=== PATIENT | female | born 1940 | race Caucasian/White ===

== ENCOUNTER → 2019-09-30 | Outpatient (CLI) | payer MEDICARE ==
[~2019-09-30] MED LIST: ASPI81TA85 PO; HYDR12.55 PO; LOSA25TA14 PO; NAPR500T6 PO; PERC5TAB12 PO; PREV1CAP PO; ROSU10TA6 PO; ZOFR4TAB16 PO
--- NOTE | 2019-09-30 11:37 | REP ---
Clinical: Preoperative assessment . Comparison: None . Technique: PA and lateral. Findings: The mediastinum and cardiac silhouette are normal. The lung zazueta are clear and without acute consolidation, effusion, or pneumothorax. The skeletal structures are intact and normal. Left shoulder replacement noted. Impression: 1. No acute cardiopulmonary process. Electronically Signed by Bry Jarrell MD 09/30/2019 11:28 A
[2019-09-30 11:53] LABS: HEMATOCRIT 39.3 % (36.0-47.0); HEMOGLOBIN 12.9 g/dl (12.0-15.5); MEAN CORPUSCULAR HGB CONC 32.8 g/dl (32.0-36.5); MEAN CORPUSCULAR VOLUME 91.4 fl (80.0-96.0); PLATELET COUNT, AUTOMATED 292 10^3/uL (150-450); WHITE BLOOD COUNT 8.3 10^3/uL (4.0-10.0)
[2019-09-30 12:05] LABS: INR 1.06; PROTHROMBIN TIME 13.5 SECONDS (11.8-14.0)
[2019-09-30 12:17] LABS: ERYTHROCYTE SEDIMENTATION RATE 46 mm/hr (0-30)
[2019-09-30 12:26] LABS: ALBUMIN 3.6 GM/DL (3.2-5.2); ALT/SGPT 20 U/L (12-78); BILIRUBIN,TOTAL 0.3 MG/DL (0.2-1.0); BLOOD UREA NITROGEN 23 MG/DL (7-18); CALCIUM LEVEL 9.4 MG/DL (8.8-10.2); CARBON DIOXIDE LEVEL 29 MEQ/L (21-32); CHLORIDE LEVEL 103 MEQ/L (98-107); GLOMERULAR FILTRATION RATE > 60.0 (>39); GLUCOSE, FASTING 70 MG/DL (70-100); POTASSIUM SERUM 4.3 MEQ/L (3.5-5.1); SODIUM LEVEL 139 MEQ/L (136-145); TOTAL PROTEIN 7.1 GM/DL (6.4-8.2)
== END ==
LOC: M LAB 10:57
PROVIDERS: ATTEND Orthopaedic Surgery
DX: Z01.818 Encounter for other preprocedural examination (principal); M17.11 Unilateral primary osteoarthritis, right knee

== ENCOUNTER → 2019-10-03 | Outpatient (CLI) | payer MEDICARE ==
[~2019-10-03] MED LIST changes: -ASPI81TA85 PO; +ASPI81TA86 PO
== END ==
LOC: M LABSMTC 10:41
PROVIDERS: ATTEND Anesthesiology
DX: Z01.818 Encounter for other preprocedural examination (principal); Z11.59 Encounter for screening for other viral diseases

== ENCOUNTER 2019-10-06 10:52 | Inpatient (IN) | payer MEDICARE ==
--- NOTE | 2019-09-30 15:43 | HPE ---
DATE OF ADMISSION: 10/06/2019 ATTENDING PHYSICIAN: Dr. César Leonard CHIEF COMPLAINT: Right knee pain and stiffness. HISTORY: The patient is a pleasant 79-year-old female with progressively worsening right knee pain and stiffness. She failed to improve with conservative measures. She continues to have symptoms with weightbearing activities and activities of daily living. She consented for an elective right total knee arthroplasty with Dr. Leonard for her continued symptoms. Medical optimization completed with Dr. Duran. CURRENT MEDICATIONS: - docusate 100 mg daily - hydrochlorothiazide 25 mg daily - pantoprazole 30 mg daily - losartan 25 mg daily - naproxen 500 mg twice daily - [id number] mg daily ALLERGIES: ATORVASTATIN PAST MEDICAL HISTORY: Hypertension. Gastroesophageal reflux disease. Hypercholesterolemia. Osteoarthritis. PAST SURGICAL HISTORY: History of shoulder surgery. SOCIAL HISTORY: The patient is a former smoker and quit greater than 20 years ago. She rarely uses alcohol. REVIEW OF SYSTEMS: The patient denies fevers, chills, nausea, vomiting or diarrhea. She denies chest pain, shortness of breath, lightheadedness, dizziness or headaches. She denies any abdominal pain. She denies any recent upper respiratory or urinary tract infection symptoms. The patient continues to have right knee pain with weightbearing activities and activities of daily living. PHYSICAL EXAMINATION: GENERAL: Well-nourished, well-developed female in no apparent distress. She is alert, oriented and cooperative. Mood and affect are appropriate. VITAL SIGNS: Height 62 inches, weight 214 pounds, temperature 97.1, blood pressure 138/75, heart rate 84, respirations 24. NECK: Supple without lymphadenopathy. HEART: Regular rate and rhythm. LUNGS: Clear to auscultation bilaterally. ABDOMEN: Soft and nontender to palpation. Bowel sounds are present. MUSCULOSKELETAL: Right knee exhibits no gross abnormalities. Skin is intact. There is tenderness along the medial joint line. The patient can extend knee fully and flex to approximately 95 degrees. Right lower extremity strength is 5/5. No hip irritability was elicited with range of motion testing. No evidence of deep venous thrombosis (DVT). She is neurovascularly intact distally. LABORATORY DATA: Chest x-ray: No acute cardiopulmonary process. Right knee x-rays notable for end-stage degenerative changes. Complete blood count: WBC is 8.3, RBCs 4.30, hemoglobin 12.9, hematocrit 39.3, erythrocyte sedimentation rate elevated at 46, platelets 292. Prothrombin time 13.5, INR 1.06. Comprehensive metabolic profile: Fasting glucose 70, BUN elevated at 23, creatinine 0.90, GFR greater than 60, sodium 139, potassium 4.3, chloride 103, carbon dioxide 29, anion gap 7, calcium 9.4, AST 14, ALT 20, alkaline phosphatase 90, total bilirubin 0.3, total protein 7.1, albumin 3.6, albumin-globulin ratio decreased at one. IMPRESSION: Right knee degenerative arthritis with x-rays notable for end-stage degenerative changes. PLAN: The patient consented for an elective right total knee arthroplasty with Dr. Leonard for her continued symptoms. Medical optimization completed with Dr. Duran. The patient will be nothing by mouth after midnight the night prior to surgery with the exception of taking any medications her primary manager long term care instructed her to take the morning of surgery with a small sip of water. She will call [facility] the day prior to surgery to get a report time. The patient will use her Bactroban and Hibiclens as directed. The patient will follow her primary manager long term care's recommendations on how to take her daily medications.
[~2019-10-06] VITALS: Ht 157.5 cm; Wt 95.6 kg
[~2019-10-06 10:52] MED LIST changes: +ACETAMINOPHEN 500 MG TAB PO ONE; -ASPI81TA86 PO; +LIDOCAINE 1% MDV 20ML VIAL SQ PRN; +LR 1,000 ML IV ONE; -PERC5TAB12 PO; -ZOFR4TAB16 PO; +ceFAZolin SOD 2 GM in IV 1 EA IV ONE
[2019-10-06] MEDS ORDERED: ceFAZolin 1GM VIAL (J0690 PER 500MG) As Ordered ONE (15:16)
[2019-10-06] MEDS ORDERED: TRANEXAMIC ACID 100 MG/ML 10ML VIAL As Ordered ONE (15:16)
[2019-10-06] MEDS ORDERED: BUPIVACAINE HCL 0.25% 10ML VIAL As Ordered ONE (15:16)
[2019-10-06] MEDS ORDERED: BUPIVACAINE LIPOSOME/PF 1.3% 20ML VIAL (13.3MG/ML)(EXPAREL)(C9290 PER1MG) As Ordered ONE (15:17)
[2019-10-06] MEDS ORDERED: EPINEPHrine INJ 1 MG/ML 1ML AMP As Ordered ONE (15:18)
[2019-10-06] MEDS ORDERED: fentaNYL 100 MCG/2 ML INJECTION (J3010) As Ordered ONE (16:35)
[2019-10-06] MEDS ORDERED: MIDAZOLAM INJ 2MG/2ML VIAL (J2250 PER 1MG) As Ordered ONE ×2 (16:35→17:50)
[2019-10-06] MEDS ORDERED: LIDOCAINE 2% 100MG/5ML SDV (FOR ANES.) As Ordered ONE (16:41)
[2019-10-06] MEDS ORDERED: propofoL 200 MG/20 ML VIAL As Ordered ONE (16:41)
[2019-10-06] MEDS ORDERED: fentaNYL 100 MCG/2 ML INJECTION (J3010) IV SCH (17:15)
[2019-10-06] MEDS ORDERED: MIDAZOLAM INJ 2MG/2ML VIAL (J2250 PER 1MG) IV SCH (17:15)
[2019-10-06] MEDS ORDERED: propofoL 500 MG/50 ML VIAL As Ordered ONE (19:01)
[2019-10-06] MEDS ORDERED: fentaNYL 100 MCG/2 ML INJECTION (J3010) IV PRN (20:30)
[2019-10-06] MEDS ORDERED: oxyCODONE 5MG TAB PO PRN (20:30)
[2019-10-06] MEDS ORDERED: MORPHINE 2 MG/ML 1ML VIAL (J2270) IV PRN (20:30)
[2019-10-06] MEDS ORDERED: ACETAMINOPHEN TAB 650MG DOSE (2X325MG) PO PRN (20:30)
[2019-10-06] MEDS ORDERED: LR 1,000 ML IV SCH ×2 (20:30)
[2019-10-06] MEDS ORDERED: PERCOCET 5MG/325MG TAB PO PRN (20:30)
[2019-10-06 20:45] VITALS: BP 157/72
[2019-10-06] MEDS ORDERED: ROPIvacaine 0.5% 30ML INJECTION (J2795 PER 1MG) ONE (21:00)
[2019-10-06] MEDS ORDERED: dexameTHASONE 10MG/1ML VIAL PRES.FREE (J1100 PER 1MG) ONE (21:00)
--- NOTE | 2019-10-06 21:06 | REP ---
Two views right knee: 10/06/2019. Indication: Postoperative assessment. Comparison: None. Findings: The patient is status post right knee total arthroplasty with the surgical hardware intact and well seated. Expected postoperative soft tissue abnormalities are present. Impression: Expected postoperative right knee sequelae. Electronically Signed by Andrzej Whalen DO 10/06/2019 08:57 P
[2019-10-06 21:15] VITALS: BP 167/76
[2019-10-06 22:15] VITALS: BP 158/76
[2019-10-06 23:15] VITALS: BP 143/73
[2019-10-07 00:15] VITALS: BP 143/72
[2019-10-07 01:15] VITALS: BP 143/74
[2019-10-07] MEDS: PERCOCET 5MG/325MG TAB PO PRN ×4 (03:01→21:45)
[2019-10-07] MEDS: VANCOMYCIN HCL 1,000 MG, VIAL MATE ADAPTER 1 EACH in D5W 250 ML IV SCH ×2 (05:39→17:26)
[2019-10-07 06:00] VITALS: BP 151/70
[2019-10-07 06:59] LABS: HEMATOCRIT 35.5 % (36.0-47.0); HEMOGLOBIN 11.8 g/dl (12.0-15.5); MEAN CORPUSCULAR HEMOGLOBIN 29.7 pg (27.0-33.0); MEAN CORPUSCULAR HGB CONC 33.2 g/dl (32.0-36.5); MEAN CORPUSCULAR VOLUME 89.4 fl (80.0-96.0); PLATELET COUNT, AUTOMATED 251 10^3/uL (150-450); RED BLOOD COUNT 3.97 10^6/uL (4.00-5.40); WHITE BLOOD COUNT 13.3 10^3/uL (4.0-10.0)
[2019-10-07] MEDS ORDERED: PERC5TAB12 PO (07:03)
[2019-10-07] MEDS ORDERED: ASPI81TA85 PO (07:03)
[2019-10-07 07:32] LABS: ALT/SGPT 16 U/L (12-78); BILIRUBIN,TOTAL 0.3 MG/DL (0.2-1.0); BLOOD UREA NITROGEN 27 MG/DL (7-18); CALCIUM LEVEL 8.8 MG/DL (8.8-10.2); CARBON DIOXIDE LEVEL 27 MEQ/L (21-32); CHLORIDE LEVEL 102 MEQ/L (98-107); CREATININE FOR GFR 0.89 MG/DL (0.55-1.30); GLOMERULAR FILTRATION RATE > 60.0 (>39); GLUCOSE, FASTING 154 MG/DL (70-100); POTASSIUM SERUM 4.1 MEQ/L (3.5-5.1); SODIUM LEVEL 137 MEQ/L (136-145); TOTAL PROTEIN 6.3 GM/DL (6.4-8.2)
[2019-10-07] MEDS: MOM 30ML SUSPENSION UDC PO SCH (09:22)
[2019-10-07] MEDS: ASPIRIN 81 MG CHEW TABLET PO SCH ×2 (09:23→21:45)
[2019-10-07] MEDS: MIRALAX *UNIT DOSE* 17GM PACKET PO SCH (09:23)
[2019-10-07 10:00] VITALS: BP 170/80
[2019-10-07] MEDS: ROSUVASTATIN 10 MG TAB (CRESTOR) PO SCH (12:32)
[2019-10-07] MEDS: hydroCHLOROthiazide 25 MG TAB PO SCH (12:32)
[2019-10-07] MEDS: ONDANSETRON 4MG/2ML VIAL IV PRN (12:32)
[2019-10-07] MEDS: LOSARTAN 25 MG TAB PO SCH (12:32)
[2019-10-07 14:00] VITALS: BP 135/53
[2019-10-07] MEDS: LANSOPRAZOLE SUSPENSION 30 MG/10 ML ORAL SYRINGE (FIRST-LANSOPRAZOLE) PO SCH (17:31)
[2019-10-07 22:00] VITALS: BP 134/54
[2019-10-07] MEDS ORDERED: PERCOCET 5MG/325MG TAB PO PRN (22:45)
[2019-10-07] MEDS ORDERED: MORPHINE 4 MG/ML 1ML VIAL/SYRINGE (J2270) IV ONE (22:45)
[2019-10-08] MEDS: PERCOCET 5MG/325MG TAB PO PRN ×4 (02:24→20:22)
[2019-10-08 06:00] VITALS: BP 141/64
[2019-10-08 06:34] LABS: HEMATOCRIT 34.1 % (36.0-47.0); HEMOGLOBIN 11.1 g/dl (12.0-15.5); MEAN CORPUSCULAR HEMOGLOBIN 29.8 pg (27.0-33.0); MEAN CORPUSCULAR HGB CONC 32.6 g/dl (32.0-36.5); MEAN CORPUSCULAR VOLUME 91.4 fl (80.0-96.0); PLATELET COUNT, AUTOMATED 218 10^3/uL (150-450); RED BLOOD COUNT 3.73 10^6/uL (4.00-5.40); WHITE BLOOD COUNT 10.6 10^3/uL (4.0-10.0)
[2019-10-08 07:07] LABS: ALBUMIN 2.8 GM/DL (3.2-5.2); ALT/SGPT 14 U/L (12-78); BILIRUBIN,TOTAL 0.4 MG/DL (0.2-1.0); BLOOD UREA NITROGEN 24 MG/DL (7-18); CALCIUM LEVEL 8.6 MG/DL (8.8-10.2); CARBON DIOXIDE LEVEL 29 MEQ/L (21-32); CHLORIDE LEVEL 101 MEQ/L (98-107); CREATININE FOR GFR 0.81 MG/DL (0.55-1.30); GLOMERULAR FILTRATION RATE > 60.0 (>39); GLUCOSE, FASTING 108 MG/DL (70-100); POTASSIUM SERUM 3.7 MEQ/L (3.5-5.1); SODIUM LEVEL 136 MEQ/L (136-145); TOTAL PROTEIN 6.2 GM/DL (6.4-8.2)
[2019-10-08] MEDS: MOM 30ML SUSPENSION UDC PO SCH (09:00)
[2019-10-08] MEDS: MIRALAX *UNIT DOSE* 17GM PACKET PO SCH (09:00)
[2019-10-08] MEDS: LANSOPRAZOLE SUSPENSION 30 MG/10 ML ORAL SYRINGE (FIRST-LANSOPRAZOLE) PO SCH (09:24)
[2019-10-08] MEDS: ROSUVASTATIN 10 MG TAB (CRESTOR) PO SCH (09:24)
[2019-10-08] MEDS: LOSARTAN 25 MG TAB PO SCH (09:24)
[2019-10-08] MEDS: hydroCHLOROthiazide 25 MG TAB PO SCH (09:25)
[2019-10-08] MEDS: ASPIRIN 81 MG CHEW TABLET PO SCH ×2 (09:25→20:21)
[2019-10-08 10:00] VITALS: BP 137/60
[2019-10-08] MEDS ORDERED: ZOFR4TAB16 PO (13:05)
[2019-10-08 14:00] VITALS: BP 133/59
[2019-10-08 18:00] VITALS: BP 135/59
[2019-10-08] MEDS: ONDANSETRON 4MG/2ML VIAL IV PRN (20:21)
[2019-10-08 22:00] VITALS: BP 135/59
[2019-10-09] MEDS: ONDANSETRON 4MG/2ML VIAL IV PRN (03:35)
[2019-10-09 05:00] VITALS: BP 139/61
[2019-10-09 07:25] LABS: HEMATOCRIT 34.3 % (36.0-47.0); HEMOGLOBIN 11.1 g/dl (12.0-15.5); MEAN CORPUSCULAR HEMOGLOBIN 29.4 pg (27.0-33.0); MEAN CORPUSCULAR HGB CONC 32.4 g/dl (32.0-36.5); PLATELET COUNT, AUTOMATED 239 10^3/uL (150-450); RED BLOOD COUNT 3.77 10^6/uL (4.00-5.40)
[2019-10-09 07:53] LABS: ALBUMIN 2.7 GM/DL (3.2-5.2); ALT/SGPT 11 U/L (12-78); BILIRUBIN,TOTAL 0.2 MG/DL (0.2-1.0); BLOOD UREA NITROGEN 18 MG/DL (7-18); CALCIUM LEVEL 8.5 MG/DL (8.8-10.2); CARBON DIOXIDE LEVEL 30 MEQ/L (21-32); CHLORIDE LEVEL 98 MEQ/L (98-107); CREATININE FOR GFR 0.68 MG/DL (0.55-1.30); GLOMERULAR FILTRATION RATE > 60.0 (>39); GLUCOSE, FASTING 98 MG/DL (70-100); POTASSIUM SERUM 3.4 MEQ/L (3.5-5.1); SODIUM LEVEL 135 MEQ/L (136-145); TOTAL PROTEIN 6.2 GM/DL (6.4-8.2)
[2019-10-09] MEDS: MOM 30ML SUSPENSION UDC PO SCH (09:10)
[2019-10-09 09:11] VITALS: BP 139/61
[2019-10-09] MEDS: LOSARTAN 25 MG TAB PO SCH (09:11)
[2019-10-09] MEDS: LANSOPRAZOLE SUSPENSION 30 MG/10 ML ORAL SYRINGE (FIRST-LANSOPRAZOLE) PO SCH (09:11)
[2019-10-09] MEDS: hydroCHLOROthiazide 25 MG TAB PO SCH (09:11)
[2019-10-09] MEDS: ROSUVASTATIN 10 MG TAB (CRESTOR) PO SCH (09:11)
[2019-10-09] MEDS: MIRALAX *UNIT DOSE* 17GM PACKET PO SCH (09:11)
[2019-10-09] MEDS: ASPIRIN 81 MG CHEW TABLET PO SCH (09:11)
[2019-10-09] MEDS: PERCOCET 5MG/325MG TAB PO PRN (09:13)
[2019-10-09] MEDS ORDERED: ASPI81TA85 PO (09:36)
[2019-10-09] MEDS ORDERED: ZOFR4TAB16 PO (09:36)
[2019-10-09] MEDS ORDERED: PERC5TAB12 PO (09:36)
--- NOTE | 2019-10-11 18:53 | DSES ---
DATE OF ADMISSION: 10/06/2019 DATE OF DISCHARGE: 10/09/2019 HISTORY OF PRESENT ILLNESS: This is a pleasant 79-year-old female with continuing symptomatic right knee osteoarthritis. She consented for a right total knee arthroplasty per Dr. César Leonard. Medical optimization per Dr. Duran. X-rays are consistent with advanced osteoarthritis. OPERATION PERFORMED: Right total knee arthroplasty. HOSPITAL COURSE: The patient uneventfully underwent knee arthroplasty under spinal anesthesia with MAC. The patient was felt to be ready for discharge on 10/09/2019 with the following instructions. Weightbearing as tolerated walker, diet is regular, Percocet as needed for pain, ZAINA stockings times 30 days with deep vein thrombosis (DVT) anticoagulation per protocol. Optifoam dressing change in 3-4 days time. Followup at orthopedic group in 12-14 days for wound check and potential staple removal. The patient is encouraged to contact our office with increased pain, drainage, bleeding, numbness, tingling down the extremity, fever greater than 101 or any further concerns.
--- NOTE | 2019-10-14 13:32 | RO ---
DATE OF PROCEDURE: 10/06/2019 PREOPERATIVE DIAGNOSIS: Right knee degenerative arthritis. POSTOPERATIVE DIAGNOSIS: Right knee degenerative arthritis. PROCEDURE: Right total knee arthroplasty using a size 5 Attune cruciate-retaining femoral component with a size 5 tibial tray and a 6-mm rotating-platform polyethylene insert and a 35-mm polyethylene button. All components were made by [employer]. It was an Attune knee. SURGEON: Ade Leonard MD SEARCH ANALYST: Ann Pozo PA-C ANESTHESIA: Right femoral nerve block and a spinal. COMPLICATIONS: None. ESTIMATED BLOOD LOSS: 20 mL. SPECIMEN: Joint surface. DESCRIPTION OF PROCEDURE: Antibiotics were given intravenously preoperatively and then a successful right femoral nerve block and then a spinal anesthetic was induced. The tourniquet was placed on the right upper thigh and not inflated. The right lower extremity was carefully prepped and draped in the usual sterile fashion. The leg elevated. Then, after appropriate time-out, the tourniquet was inflated, and then a longitudinal incision was made for a medial parapatellar approach to the knee. Bovie cautery was used to coagulate the crossing vessels. She had a relatively large leg with a deep adipose layer requiring some difficulty in exposure. A medial parapatellar arthrotomy was performed, and then we subperiosteally dissected around the proximal medial and lateral tibial plateaus. We were unable to luis enrique the patella. However, we were able to flex the knee, placed the drill down the center of the femoral canal, followed by the intramedullary dari and the distal femoral cutting jig set at 5-degree valgus cut and 9-mm resection level for a right knee. The cutting block was applied. Distal femoral cut was then performed. AP sizing jig measured for a size 5. 3 degrees of external rotation were dialed in for a right knee, 4-in-1 block applied, and then the anterior and posterior chamfer cuts performed. The sulcus osteotomy jig was then placed and the sulcus osteotomy performed. We then exposed the proximal tibia. We then exposed the proximal tibia, used the extramedullary alignment jig to estimate being parallel to the mechanical axis of the tibia. We referenced off the medial tibial condyle at 4-mm resection level. The block was pinned into position with the appropriate slope, and then a a secondary check with the extramedullary dari confirmed we appeared to be parallel. Thus, we performed the proximal tibial osteotomy. We then placed the lamina torch operator medially and performed a completion of lateral meniscectomy and debridement of the posterior and medial osteophytes, and then placed the lamina torch operator laterally and performed a completion of medial meniscectomy with debridement of the posterior and medial osteophytes. There was a very large posterior and medial osteophyte dissected away. The spacer block 6 mm fit nicely with good symmetry to varus and valgus stress testing, both in flexion and in extension. Thus, I felt this was the appropriate size insert. We then exposed the proximal tibia carefully once again because we could not luis enrique the patella, and then we sized for a #5 tibial tray, which was pinned into position, followed by the reamer and the broach, and then the trial polyethylene, and then the trial femoral component. We brought the knee into extension, everted the patella, and performed a patellar osteotomy, sized for a 35 button. The lug holes drilled. The trial was applied. Patellofemoral tracking was actually anatomic. We then drilled the lug holes for the femur, then removed all the trial components, and we placed Exparel in the subperiosteal tissues around the distal femur and the proximal tibia, and then as I copiously pulsatile lavage irrigated all the bony surfaces in preparation for cementing while my drug safety assistant, Ms. Nuzhat Pozo mixed the cement on the back table. She was also critical to the success of this difficult surgery given the size of her leg and a large amount of adipose tissue and the fact that we were unable to luis enrique the patella during the case by applying appropriate soft tissue retraction, manipulate the knee as needed several times throughout the surgery, mix the cement, prepare the patient for surgery, help close the wound, amongst many other tasks to allow me to perform the operation smoothly, efficiently, and safely. Once all the bony surfaces were thoroughly dried, we then cemented the tibial tray, removed excess cement, placed the polyethylene. Then, we cemented the femoral component, removed excess cement, brought the knee into extension, cemented the patellar button, removed excess cement, and held it with a clamp with the knee in full extension until the cement had hardened. As we were awaiting this, we copiously irrigated out the knee joint once again. Then, we applied tranexamic acid into the knee joint and then began meticulous closure of the arthrotomy with two #1 polydioxanone suture (PDS) sutures in the apex and one medial parapatellar and then also a double-arm #1 running Stratafix used to close the capsule. Then, we released the tourniquet. We irrigated between layers again and closed the deep subdermal tissues with interrupted #2-0 PDS sutures. Then, the skin was closed with roselyn, covered by an Optifoam with dry sterile bulky dressing. She was then transferred to the recovery room in stable condition. There were no intraoperative complications.
== END 2019-10-09 12:40 | disposition home or self-care (01) | DRG 470 ==
LOC: M OR 13:25 → M MS5PR 20:40
PROVIDERS: ADMIT Orthopaedic Surgery; ATTEND Orthopaedic Surgery
PROC: 0SRC0J9 Replacement of Right Knee Joint with Synthetic Substitute, Cemented, Open Approach (ICD-10-PCS; principal; 2019-10-06 16:45)
DX: M17.11 Unilateral primary osteoarthritis, right knee (principal); I10 Essential (primary) hypertension; K21.9 Gastro-esophageal reflux disease without esophagitis; E78.00 Pure hypercholesterolemia, unspecified; Z11.59 Encounter for screening for other viral diseases; Z87.891 Personal history of nicotine dependence; Z88.8 Allergy status to other drugs, medicaments and biological substances; Z79.1 Long term (current) use of non-steroidal anti-inflammatories (NSAID); Z79.899 Other long term (current) drug therapy

== ENCOUNTER → 2020-03-29 | Outpatient (CLI) | payer MEDICARE ==
[~2020-03-29] MED LIST changes: -ACETAMINOPHEN 500 MG TAB PO ONE; +ASPI81TA86 PO; -LIDOCAINE 1% MDV 20ML VIAL SQ PRN; -LR 1,000 ML IV ONE; +PERC5TAB12 PO; +ZOFR4TAB16 PO; -ceFAZolin SOD 2 GM in IV 1 EA IV ONE
--- NOTE | 2020-03-29 09:32 | REP ---
INDICATION: OSTEOARTHRITIS LEFT KNEE- LABS/EKG 1ST COMPARISON: 09/30/2019 TECHNIQUE: PA and lateral. FINDINGS: The mediastinum and cardiac silhouette are normal. The lung zazueta are clear and without acute consolidation, effusion, or pneumothorax. The skeletal structures are intact and normal. IMPRESSION: No acute cardiopulmonary process. <Electronically signed by Bry Jarrell > 03/29/20 09
[2020-03-29 09:51] LABS: HEMATOCRIT 38.7 % (36.0-47.0); HEMOGLOBIN 12.1 g/dl (12.0-15.5); MEAN CORPUSCULAR HEMOGLOBIN 28.8 pg (27.0-33.0); MEAN CORPUSCULAR HGB CONC 31.3 g/dl (32.0-36.5); MEAN CORPUSCULAR VOLUME 92.1 fl (80.0-96.0); PLATELET COUNT, AUTOMATED 247 10^3/uL (150-450); WHITE BLOOD COUNT 7.4 10^3/uL (4.0-10.0)
[2020-03-29 10:01] LABS: INR 0.91; PROTHROMBIN TIME 12.4 SECONDS (12.5-14.3)
[2020-03-29 10:12] LABS: ERYTHROCYTE SEDIMENTATION RATE 43 mm/hr (0-30)
[2020-03-29 10:16] LABS: ALBUMIN 3.4 GM/DL (3.2-5.2); ALT/SGPT 23 U/L (12-78); BILIRUBIN,TOTAL 0.3 MG/DL (0.2-1.0); BLOOD UREA NITROGEN 28 MG/DL (7-18); CARBON DIOXIDE LEVEL 29 MEQ/L (21-32); CHLORIDE LEVEL 103 MEQ/L (98-107); GLOMERULAR FILTRATION RATE > 60.0 (>39); GLUCOSE, FASTING 92 MG/DL (70-100); POTASSIUM SERUM 4.2 MEQ/L (3.5-5.1); SODIUM LEVEL 138 MEQ/L (136-145); TOTAL PROTEIN 6.6 GM/DL (6.4-8.2)
--- NOTE | 2020-03-29 18:12 | ECGEPIP ---
[facility] Test Date: 2020-03-29 Pat Name: CHECO JONES Department: Room: - Gender: Female Roll Table Operator: DEVON : 1940 Requested By: Ade Lindsey Order Number: [id number] Reading MD: Beck Borjas Measurements Intervals Lipan Rate: 63 P: 75 VT: 143 QRS: -11 QRSD: 92 T: 66 QT: 412 QTc: 423 Interpretive Statements Normal sinus rhythm Leftward axis Nonspecific T-wave abnormality Comparison tracing not on file Electronically Signed on 03-29-2020 18:12:28 EST by Beck Borjas
== END ==
LOC: M LAB 08:39
PROVIDERS: ATTEND Orthopaedic Surgery
DX: Z01.818 Encounter for other preprocedural examination (principal); M17.12 Unilateral primary osteoarthritis, left knee; R94.31 Abnormal electrocardiogram [ECG] [EKG]

== ENCOUNTER → 2020-04-05 | Outpatient (CLI) | payer MEDICARE ==
[~2020-04-05] MED LIST changes: +LANS30CA93
--- NOTE | 2020-04-05 09:56 | HPE ---
HISTORY AND PHYSICAL DATE OF ADMISSION: 04/10/2020 CHIEF COMPLAINT: Left knee pain and stiffness. HISTORY OF PRESENT ILLNESS: The patient is a pleasant 79-year-old female with progressively worsening left knee pain and stiffness. She failed to improve with conservative measures. She continues to have symptoms with weightbearing activities and activities of daily living. She has consented for an elective left total knee arthroplasty with Dr. Zapien for her continued symptoms. CURRENT MEDICATIONS: - Docusate 100 mg daily - Hydrochlorothiazide 25 mg daily - Pantoprazole 30 mg daily - Losartan 25 mg daily - Naproxen 500 mg twice a day - Rosuvastatin 10 mg daily ALLERGIES: ATORVASTATIN. PAST MEDICAL HISTORY: 1. Hypertension. 2. Gastroesophageal reflux disease. 3. Hypercholesterolemia. 4. Osteoarthritis. PAST SURGICAL HISTORY: 1. History of a right total knee arthroplasty. 2. Shoulder surgery. SOCIAL HISTORY: The patient is a former smoker and quit greater than 20 years ago. She rarely uses alcohol. REVIEW OF SYSTEMS: The patient denies fevers or chills, nausea or vomiting, or diarrhea. She denies chest pain, shortness of breath, lightheadedness, dizziness, or headaches. She denies any recent upper respiratory or urinary tract infection symptoms. No complaints of abdominal pain. She does continue to have left knee pain with weightbearing activities and activities of daily living. PHYSICAL EXAMINATION: GENERAL: Well nourished, well developed female in no apparent distress. She is alert, oriented, and cooperative. Mood and affect are appropriate. VITAL SIGNS: Height 5 feet 1.5 inches, weight 210.8 pounds, temperature 96 degrees, blood pressure 128/82, heart rate 74, respirations 16. HEART: Regular rate and rhythm. LUNGS: Clear to auscultation bilaterally. Breathing is regular and nonlabored. ABDOMEN: Soft and nontender. Bowel sounds are present. MUSCULOSKELETAL: Left knee exhibits no gross abnormalities. The patient is not using any assistive devices for ambulation. She is walking with a limp, favoring the left lower extremity. The patient can extend knee fully and flex to about 95 degrees. Left lower extremity strength is 5/5. No hip irritability was elicited with range of motion testing today. The patient's calf is soft and nontender without evidence of DVT. She is neurovascularly intact distally. LABORATORY DATA/IMAGING: Chest x-ray: No acute cardiopulmonary process. Left knee x-ray notable for end stage degenerative changes. EKG normal sinus rhythm with leftward axis. Nonspecific T-wave abnormality. Comprehensive metabolic profile: Fasting glucose 92, BUN elevated at 23, creatinine 0.90, GFR greater than 60, sodium 138, potassium 4.2, chloride 103, CO2 29, anion gap decreased at 6, calcium 9.0, AST 18, ALT 23, alkaline phosphatase 95, total bilirubin 0.3, total protein 6.6, albumin 3.4, albumin/globulin ratio decreased at 1.1. Complete blood count: ESR elevated at 43, WBC 7.4, RBC 4.20, hemoglobin 12.1, hematocrit 38.7, platelets 247. Prothrombin time 12.4. INR 0.91. IMPRESSION: Left knee degenerative arthritis with x-rays notable for end stage degenerative changes. PLAN: The patient consented for an elective left total knee arthroplasty with Dr. Zapien for continued symptoms. We are pending medical clearance from her primary care coordinator, Dr. Duran. The patient is using her Hibiclens and Bactroban as directed. She is having her COVID test later on today. She knows to be nothing by mouth after midnight the night prior to surgery. She will follow her primary care manger's recommendations on how to take her daily medications.
== END ==
LOC: M LABSMTC 10:54
PROVIDERS: ATTEND Anesthesiology
DX: Z01.812 Encounter for preprocedural laboratory examination (principal); Z20.822 Contact with and (suspected) exposure to COVID-19

== ENCOUNTER 2020-04-10 08:53 | Inpatient (IN) | payer MEDICARE ==
[~2020-04-10] VITALS: Ht 160 cm; Wt 97.0 kg
[~2020-04-10 08:53] MED LIST changes: +ACETAMINOPHEN 500 MG TAB PO ONE; +LR 1,000 ML IV ONE; +MIDAZOLAM INJ 2MG/2ML VIAL (J2250 PER 1MG) IV PRN; +fentaNYL 100 MCG/2 ML INJECTION (J3010) IV PRN
[2020-04-10] MEDS ORDERED: ROPIvacaine 0.5% 30ML INJECTION (J2795 PER 1MG) XX ONE (10:45)
[2020-04-10] MEDS ORDERED: ACETAMINOPHEN 500 MG TAB PO ONE (10:45)
[2020-04-10] MEDS ORDERED: EPINEPHrine INJ 1 MG/ML 1ML AMP XX ONE (10:45)
[2020-04-10] MEDS ORDERED: dexameTHASONE 10MG/1ML VIAL PRES.FREE (J1100 PER 1MG) XX ONE (10:45)
[2020-04-10] MEDS ORDERED: ceFAZolin SOD 2 GM in IV 1 EA IV ONE (10:45)
[2020-04-10] MEDS ORDERED: fentaNYL 100 MCG/2 ML INJECTION (J3010) As Ordered ONE (11:07)
[2020-04-10] MEDS ORDERED: ONDANSETRON 4MG/2ML VIAL As Ordered ONE (11:08)
[2020-04-10] MEDS ORDERED: propofoL 500 MG/50 ML VIAL As Ordered ONE (11:08)
[2020-04-10] MEDS ORDERED: LIDOCAINE 2% 100MG/5ML SDV (FOR ANES.) As Ordered ONE (11:08)
[2020-04-10] MEDS ORDERED: BUPIVACAINE HCL 0.25% 10ML VIAL As Ordered ONE (12:07)
[2020-04-10] MEDS ORDERED: TRANEXAMIC ACID 100 MG/ML 10ML VIAL As Ordered ONE (12:07)
[2020-04-10] MEDS ORDERED: BUPIVACAINE LIPOSOME/PF 1.3% 20ML VIAL (13.3MG/ML)(EXPAREL)(C9290 PER1MG) As Ordered ONE (12:08)
[2020-04-10] MEDS ORDERED: ceFAZolin 1GM VIAL (J0690 PER 500MG) As Ordered ONE (12:08)
[2020-04-10] MEDS ORDERED: EPINEPHrine INJ 1 MG/ML 1ML AMP As Ordered ONE (12:39)
[2020-04-10] MEDS ORDERED: PHENYLephrine 500MCG 5ML (100MCG/ML) SYRINGE As Ordered ONE (13:31)
[2020-04-10] MEDS ORDERED: ePHEDrine SULFATE 25 MG/5 ML(5MG/ML) SYRINGE As Ordered ONE (13:41)
[2020-04-10] MEDS ORDERED: PERCOCET 5MG/325MG TAB PO PRN ×3 (15:15→20:00)
[2020-04-10] MEDS ORDERED: METOCLOPRAMIDE INJ 10MG/2ML VIAL (J2765 PER 1) IV PRN (15:15)
[2020-04-10] MEDS ORDERED: LR 1,000 ML IV SCH (15:15)
[2020-04-10] MEDS ORDERED: ACETAMINOPHEN TAB 650MG DOSE (2X325MG) PO PRN (15:15)
[2020-04-10] MEDS ORDERED: MORPHINE 2 MG/ML 1ML VIAL (J2270) IV PRN ×2 (15:15)
[2020-04-10] MEDS ORDERED: fentaNYL 100 MCG/2 ML INJECTION (J3010) IV PRN (15:15)
[2020-04-10] MEDS: LR 1,000 ML IV SCH (15:15)
[2020-04-10] MEDS ORDERED: MORPHINE 4 MG/ML 1ML VIAL/SYRINGE (J2270) IV PRN (15:15)
[2020-04-10] MEDS ORDERED: oxyCODONE 5MG TAB PO PRN (15:15)
[2020-04-10] MEDS ORDERED: ONDANSETRON 4MG/2ML VIAL IV PRN ×2 (15:15)
--- NOTE | 2020-04-10 15:21 | REP ---
INDICATION: POST OP IN PACU COMPARISON: None. TECHNIQUE: AP and cross-table lateral views. FINDINGS: Normal appearance and positioning to the femoral and tibial components. Overlying postsurgical changes and skin roselyn noted. IMPRESSION: Status post left knee replacement. <Electronically signed by Bry Jarrell > 04/10/20 [id number]
--- NOTE | 2020-04-10 15:30 | RO ---
OPERATIVE NOTE DATE OF OPERATION: 04/10/2020 PREOPERATIVE DIAGNOSIS: Left knee degenerative arthritis. POSTOPERATIVE DIAGNOSIS: Left knee degenerative arthritis. PROCEDURE: Left total knee arthroplasty using a size 5 femoral component cemented cruciate-retaining with a size 5 tibial trace and a 7 mm rotating platform polyethylene insert, 35 mm polyethylene button. All the components were cemented. The prosthesis was made by [employer]. It was an Attune. SURGEON: Ade Leonard M.D. ANESTHESIA: Left femoral nerve block with a spinal. COMPLICATIONS: None. ESTIMATED BLOOD LOSS: 20 mL. TELECOMMUNICATION LINES REPAIRER: MEG Lomeli. SPECIMENS: Joint surface. DESCRIPTION OF PROCEDURE: Antibiotics were given intravenously preoperatively. A left femoral nerve block was performed and then, a spinal anesthetic was induced. Tourniquet was placed to the left upper thigh and not inflated. The left lower extremity was carefully prepped and draped in the usual sterile fashion then elevated. Then after appropriate time-out, the tourniquet was inflated. A longitudinal incision was made for a medial parapatellar approach to the knee. Bovee cautery was used to coagulate crossing vessels. The medial parapatellar arthrotomy was performed and subperiosteal dissection around the proximal, medial, and lateral tibial plateau was performed. The patella was unable to be everted cause of the soft of the soft tissue envelope. The knee was flexed and ACL debrided. Drill placed down the center of the femoral canal, followed by the intramedullary dari, and the distal femoral cutting jig set at 9 mm of distal femoral resection at 5 degree valgus for a left knee. Block was pinned into position and then, the distal femoral cut performed. AP sizing jig measured for a size 5. Three degrees of external rotation were dialed in, the pins were placed, the 4:1 block applied, and the anterior-posterior chamfer cuts were performed. The sulcus osteotomy jig was applied and sulcus osteotomy performed. We then exposed the proximal tibia, used the extramedullary alignment jig to estimate being parallel to the mechanical axis of the tibia referencing off the medial tibial condyle at 4 mm resection level. The jig was pinned into position. Secondary check with the extramedullary dari confirmed that we appeared to be parallel to the mechanical axis. Thus, the proximal tibial osteotomy was performed. Lamina car shakeout operator was placed laterally and we performed a completion medial meniscectomy and debridement of posteromedial osteophytes. We then placed the lamina car shakeout operator medially and performed a complete lateral meniscectomy debriding the posterolateral osteophytes. Spacer block fit base with 7 mm with good symmetry between flexion and extension space. Thus, exposed the proximal tibia and sized for a #5 tray. It was pinned into position followed by the reamer and broach and the trial polyethylene placed. The trial femoral component fit very nicely, brought the knee into extension, everted the patella, and performed a patellar osteotomy sized for a 35 button, and lug holes were drilled. Trial was placed and patellofemoral tracking was anatomic. Thus, we drilled the lug holes through the femur, removed all the trial components, and then placed Exparel in the subperiosteal tissues around the distal femur and proximal tibia. Then, my field assistant Mr. Cora Eugene mixed the cement on the back table as I prepared the bony surfaces for cementing with a copious amount of pulsatile lavage irrigant solution. Mr. Eugene was critical to the success of this very difficult surgery given the morbid obesity and size of her leg, by helping with appropriate soft tissue retraction, helped to mix the cement, helped to close the wound, helped to flex and extend the knee as needed, and helped to prepare the patient for surgery, amongst many other tasks, to allow me to perform the operation smoothly, efficiently, and safely. Once all the bony surfaces were thoroughly dried, we cemented the tibial tray, removed excess cement, placed the polyethylene, cemented the femoral component, and removed excess cement. We brought the knee to extension, everted the patella, and then cemented the patellar button; held it with a clamp after removing excess cement and held the knee in full extension while the cement hardened. As we were awaiting this, we copiously irrigated out the knee joint as we did several times throughout the operation. We then placed tranexamic acid within the knee. We then closed the apex of the arthrotomy with two #1 PDS sutures, medial parapatellar area was closed with #1 PDS suture, and then a running double-arm #1 STRATAFIX was used to close the capsule. The tourniquet was released at this point. We irrigated the deep tissues after this, and then the subdermal tissues were closed with interrupted 2-0 PDS sutures, skin was closed with roselyn covered by Optifoam and a dry sterile bulky dressing. The patient was then transferred to the recovery room in stable condition. There were no intraoperative complications.
[2020-04-10 16:00] VITALS: BP 146/78
--- NOTE | 2020-04-10 16:46 | HPEPDOC ---
[facility] Medical History & Physical Date of Admission Apr 10, 2020 Date of Service: Apr 10, 2020 Attending Physician: JORGE TITUS MD History and Physical CHIEF COMPLAINT: Left knee pain and stiffness with severe degenerative osteoarthritis HISTORY OF PRESENT ILLNESS: 79-year-old W with a history of osteoarthritis with progressively worsening left knee pain and stiffness that failed improve with conservative measures and is now being admitted after elective left total knee arthroplasty with Dr. Zapien. Her medical history is significant for HTN, GERD, HLD, obesity. She had an unremarkable pre-op clearance with her PCP and received hannah-op ancef and no complications during surgery. She is now admitted post-op and is doing well without report of recent fever, chills, chest pain, palpitations, shortness of breath, and post op knee pain is well controlled. HOME MEDICATIONS: see below ALLERGIES: ATORVASTATIN. PAST MEDICAL HISTORY: 1. Hypertension. 2. Gastroesophageal reflux disease. 3. Hypercholesterolemia. 4. Osteoarthritis. PAST SURGICAL HISTORY: 1. History of a right total knee arthroplasty. 2. Shoulder surgery. 3. Now s/p left total knee arthroplasty. SOCIAL HISTORY: Former smoker and quit greater than 20 years ago. Rare alcohol. No illicit drug use. REVIEW OF SYSTEMS: 10 point ROS was completed and was otherwise negative, unless noted in HPI. PHYSICAL EXAMINATION: GENERAL: Well nourished, well developed female in no apparent distress. VITAL SIGNS: HDS, afebrile, breathing comfortably on room air, see below for details HEART: Regular rate and rhythm. LUNGS: Clear to auscultation bilaterally. Breathing comfortably on room air,without use of accessory muscles. ABDOMEN: Soft and nontender. Bowel sounds normoactive. MUSCULOSKELETAL: Left knee with bandaging. Wiggles toes, otherwise further exam deferred immediately postop. RLE wnl with FROM NEURO: CN 3-12 intact, nonfocal examination PSYCH: AOx3 LABS: pre-op labs were done as outpatient IMAGING: L knee XR: Normal appearance and positioning to the femoral and tibial components. Overlying postsurgical changes and skin roselyn noted. IMPRESSION: Status post left knee replacement. Assessment: 79-year-old W with a history of HTN, GERD, HLD, obesity, osteoarthritis who was admitted after elective left total knee arthroplasty with Dr. Zapien and medicine consulted for medical co-management. s/p L knee arthroplasty: -Pain management, DVT ppx, PT recs per orthopedics primary team -with ongoing periop ancef HTN: -continue home HCTZ and losartan tomorrow AM after BMP GERD: -continue home lansoprazole HLD: -continue home rosuvastatin DVT ppx: per ortho primary team Diet: 2g sodium Vital Signs Vital Signs Date Time Temp Pulse Resp B/P (MAP) Pulse Ox O2 Delivery O2 Flow Rate FiO2 04/10/20 15:35 96.0 67 16 50/59 (56) 96 Room Air 04/10/20 12:45 2 Home Medications Scheduled Hydrochlorothiazide (Hydrochlorothiazide) 12.5 Mg Tablet, 25 MG PO DAILY Lansoprazole (Lansoprazole) 30 Mg Capsule.dr, DAILY Losartan Potassium (Losartan Potassium) 25 Mg Tablet, 25 MG PO DAILY Rosuvastatin Calcium (Rosuvastatin Calcium) 10 Mg Tablet, 10 MG PO DAILY Allergies Coded Allergies: No Known Allergies (Unverified , 04/03/20) A-FIB/CHADSVASC A-FIB History Current/History of A-Fib/PAF?: No Current PO Anticoag Therapy: No Age/Risk Factor Scoring CHADSVASC: CHADSVASC Response (Comments) Value Age Risk Factor Age >/= 75 years old 2 Gender Risk Factor Female 1 Hx of CHF No 0 Hx of HTN Yes 1 Hx of Stroke/TIA/or VTE No 0 Hx of Diabetes No 0 Hx of Vascular Disease No 0 Total 4 Treatment Treatment ordered: NONE Reason Anticoagulant not given: Not indicated/[id number] JORGE TITUS MD Apr 10, 2020 16:16
--- OUTSIDE RECORDS SUMMARY | 2020-04-10 17:09 | CCD ---
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 Name Role Phone VANWAGNER, EVERETTE DO Unavailable Unavailable VANWAGNER, EVERETTE DO Unavailable Unavailable VANWAGNER, EVERETTE DO Unavailable Unavailable VANWAGNER, EVERETTE DO Unavailable Unavailable VANWAGNER, EVERETTE DO Unavailable Unavailable VANWAGNER, EVERETTE DO Unavailable Unavailable VANWAGNER, EVERETTE DO Unavailable Unavailable VANWAGNER, EVERETTE DO Unavailable Unavailable VANWAGNER, EVERETTE DO Unavailable Unavailable VANWAGNER, EVERETTE DO Unavailable DR MD NOY Sanchez Unavailable Unavailable Robin Zapien MD Unavailable Unavailable Robin Zapien MD Unavailable Unavailable Robin Zapien MD Unavailable Unavailable Robin Zapien MD Unavailable Unavailable Robin Zapien MD Unavailable Unavailable Robin Zapien MD Unavailable Unavailable Robin Zapien MD Unavailable Unavailable Robin Zapien MD Unavailable Unavailable Robin Zapien MD Unavailable Unavailable Robin Zapien MD Unavailable Unavailable Robin Zapien MD Unavailable Unavailable Robin Zapien MD Unavailable Unavailable Robin Zapien MD Unavailable Unavailable Robin Zapien MD Unavailable Unavailable Robin Zapien MD Unavailable Unavailable Robin Zapien MD Unavailable Unavailable Robin Zapien MD Unavailable Unavailable Vaneenenaam, Robin Lindsey MD Unavailable Unavailable Vaneenenaam, Robin Lindsey MD Unavailable Unavailable Vaneenenaam, Robin Lindsey MD Unavailable Unavailable Vaneenenaam, Robin Lindsey MD Unavailable Unavailable Vaneenenaam, Robin Lindsey MD Unavailable Unavailable Vaneenenaam, Robin Lindsey MD Unavailable Unavailable Vaneenenaam, Robin Lindsey MD Unavailable Unavailable Vaneenenaam, Robin Lindsey MD Unavailable Unavailable Vaneenenaam, Robin Lindsey MD Unavailable Unavailable Vaneenenaam, Robin Lindsey MD Unavailable Unavailable Vaneenenaam, Robin Lindsey MD Unavailable Unavailable Vaneenenaam, Robin Lindsey MD Unavailable Unavailable Vaneenenaam, Robin Lindsey MD Unavailable Unavailable Vaneenenaam, Robin Lindsey MD Unavailable Unavailable Vaneenenaam, Robin Lindsey MD Unavailable Unavailable Vaneenenaam, Robin Lindsey MD Unavailable Unavailable Vaneenenaam, Robin Lindsey MD Unavailable Unavailable Vaneenenaam, Robin Lindsey MD Unavailable Unavailable Vaneenenaam, Robin Lindsey MD Unavailable Unavailable Vaneenenaam, Robin Lindsey MD Unavailable Unavailable Vaneenmadisonam, Robin Lindsey MD Unavailable Unavailable Vaneenmadisonam, Robin Lindsey MD Unavailable Unavailable Vaneenenaam, Robin Lindsey MD Unavailable Unavailable Vaneenenaam, Robin Lindsey MD Unavailable Unavailable Vaneenenaam, Robin Lindsey MD Unavailable Unavailable Vaneenmadisonam, Robin Lindsey MD Unavailable Unavailable Vaneenenaam, Robin Lindsey MD Unavailable Unavailable SorgeJamil MD Unavailable Unavailable Sorge, Jamil Medeiros MD Unavailable Unavailable SorgeJamil MD Unavailable Unavailable Sorge, Jamil Medeiros MD Unavailable Unavailable SorgeJamil MD Unavailable Unavailable SorJamil nava MD Unavailable Unavailable SorJamil nava MD Unavailable Unavailable SorJamil nava MD Unavailable Unavailable SorJamil nava MD Unavailable Unavailable SorJamil nava MD Unavailable Unavailable SorJamil nava MD Unavailable Unavailable SorJamil nava MD Unavailable Unavailable SorJamil nava MD Unavailable Unavailable SorJamil nava MD Unavailable Unavailable SorJamil nava MD Unavailable Unavailable SorgeJamil MD Unavailable Unavailable SorgeJamil MD Unavailable Unavailable SorgeJamil MD Unavailable Unavailable SorgeJamil MD Unavailable Unavailable SorgeJamil MD Unavailable Unavailable SorgeJamil MD Unavailable Unavailable MEDENT_8646, [id number] Unavailable MEDENT_8646, [id number] Unavailable MEDENT_8646, [id number] Unavailable MEDENT_8646, [id number] Unavailable MEDENT_8646, [id number] Unavailable MEDENT_8646, [id number] Unavailable MEDENT_8646, [id number] Unavailable MEDENT_8646, [id number] Unavailable MEDENT_8646, [id number] Unavailable [facility]_8646, [id number] Unavailable [facility]_8646, [id number] Unavailable Re-disclosure Warning The records that you are about to access may contain information from federally-assisted alcohol or drug abuse programs. If such information is present, then the following federally mandated warning applies: This information has been disclosed to you from records protected by federal confidentiality rules (42 CFR part 2). The federal rules prohibit you from making any further disclosure of this information unless further disclosure is expressly permitted by the written consent of the person to whom it pertains or as otherwise permitted by 42 CFR part 2. A general authorization for the release of medical or other information is NOT sufficient for this purpose. The Federal rules restrict any use of the information to criminally investigate or prosecute any alcohol or drug abuse patient.The records that you are about to access may contain highly sensitive health information, the redisclosure of which is protected by Article 27-F of the [facility] Public Health law. If you continue you may have access to information: Regarding HIV / AIDS; Provided by facilities licensed or operated by the [facility] Office of Mental Health; or Provided by the [facility] Office for People With Developmental Disabilities. If such information is present, then the following [facility] mandated warning applies: This information has been disclosed to you from confidential records which are protected by state law. State law prohibits you from making any further disclosure of this information without the specific written consent of the person to whom it pertains, or as otherwise permitted by law. Any unauthorized further disclosure in violation of state law may result in a fine or fpc sentence or both. A general authorization for the release of medical or other information is NOT sufficient authorization for further disc losure. Allergies and Adverse Reactions Type Description Substance Reaction Status Data Source(s ) Miscellaneous allergy No Known Environmental Allergies No Kn own Environmental Allergies [facility] Miscellaneous allergy No Known Food Allergies No Known Food Allergies [facility] Drug allergy NANCY INHIBITORS NANCY INHIBITORS JOINT PAIN UNKNOWN [facility] Family History Family Member Name Family Member Gender Family Member Status Date o f Status Description Data Source(s) Unknown Male Problem [facility] ([facility]) () Encounters Encounter Providers Location Date Indications Data Source(s ) Outpatient Attender: Robin villarreal MDAdmitter: Robin Zapien MDConsultant: Waldemar Mario MD 11/30/2019 09:36:00 AM EDT Physic al therapy [facility] Physical therapy Admission cancelled. Disregard status an d admitted date. Outpatient Attender: EVERETTE SANTIZO DO CPSCAORT-CPSLAOPT 01:39:00 PM EDT - 11/12/2019 01:40:00 PM EDT [facility] Patient discharged. Outpatient Attender: Robin villarreal MDAdmitter: Robin Zapien MDConsultant: Waldemar Mario MD 11/02/2019 10:00:00 AM EDT - 11/29/2019 09:33:00 AM EDT Physical therapy [facility] Physical therapy Patient discharged. Outpatient Attender: Robin villarreal MDAdmitter: Robin Zapien MDConsultant: Waldemar Mario MD 10/13/2019 10:04:00 AM EDT - 10/29/2019 10:02:00 AM EDT Physical therapy [facility] Physical therapy Patient discharged. Outpatient Attender: [id number] CPSCAORT-IMAPD 08/13/2019 01:49:00 AM EDT - 08/13/2019 01:50:00 AM EDT Z12.31 [facility] Z12.31 Patient discharged. Outpatient Attender: Robin Zapien MD Physical Therap y 07/14/2019 09:00:00 AM EDT [facility] ([facility]) Outpatient Attender: DR NOY Gentile: DR NOY Soliz: DR NOY Wolffultant: Waldemar Mario MD 2019 10:20:00 AM EST - 04/19/2019 11:00:00 AM EST Hypertension [facility] Hypertension Patient discharged. Outpatient Attender: DR NOY Gentile: DR NOY Albertoant: Waldemar Mario MD 008 04/16/2019 07:54:00 AM EST - 04/16/2019 07:54:00 AM EST Lab test [facility] Lab test Outpatient Attender: EVERETTE SANTIZO DO CPSCAORT-REFOPS 03/31 10:28:00 AM EST - 04/14/2019 10:29:00 AM EST YAG CAP OS [facility] YAG CAP OS Patient discharged. Outpatient Attender: EVERETTE SANTIZO DO CPSCAORT-REFOPS 10/2019 10:22:00 AM EST - 04/07/2019 10:23:00 AM EST YAG CAP OD [facility] YAG CAP OD Patient discharged. Outpatient Attender: EVERETTE SANTIZO DO CPSCAORT-CPSLAOPT 12:37:00 PM EST - 02/24/2019 12:38:00 PM EST [facility] Patient discharged. Outpatient Attender: EVERETTE SANTIZO DO CPSCAORT-CPSLAOPT 10:30:00 AM EDT - 01/26/2019 10:31:00 AM EDT [facility] Patient discharged. Medications Medication Brand Name Start Date Product Form Dose Route Admi nistrative Instructions Pharmacy Instructions Status Indications Reaction Description Data Source(s) Mupirocin 0.02 MG/MG Topical Ointment Mupirocin 03/20/2020 12:00:00 AM EST active [facility] chlorhexidine gluconate 40 MG/ML Medicated Liquid Soap [Angyi clemeliton] Hibiclens 09/22/2019 12:00:00 AM EDT TOPICAL active [facility] ([facility]) Mupirocin 0.02 MG/MG Topical Ointment [Bactroban] Bactroban 09/22/2019 12:00:00 AM EDT [facility] Insurance Providers Payer name Policy type / Coverage type Policy ID Covered green party ID Covered green party's relationship to pan Policy Pan Plan Information MEDICARE COMPLETE [id number] SP [id number] MEDICARE [id number] SP [id number] [facility] MEDIC[facility] COMPLETE G [id number] Self [id number] [facility] [id number] undefined [id number] [facility] [place] [id number] undefined [id number] [facility]LY [facility] MEDICARE [id number] Retired [id number] MEDICARE COMPLETE-[facility] O [id number] S [id number] MEDICARE COMPLETE [id number] SP [id number] [employer] [facility] MEDICARE [id number] Retired [id number] [facility] [id number] undefined [id number] [facility] [id number] undefined [id number] [facility] MEDICARE COMPLETE G [id number] Self [id number] [facility] Secure Horizons MCR Commercial [id number] Self [id number] [facility] SECURE [place] [id number] 18 [id number] SECURE HORIZONS [facility] MEDICARE O/P [id number] 18 [id number] SECURE HORIZONS [facility] [place] [id number] 18 [id number] [facility] MDCR [place] [id number] 18 [id number] [facility] Secure Horizons [facility] Commercial [id number] Self [id number] [facility] MEDICARE [id number] Jaimee [id number] [facility] MEDICARE ADVANTAGE [id number] 1 [id number] [facility] [id number] SP [id number] Problems, Conditions, and Diagnoses Code Display Name Description Problem Type Effective Dates Data Source(s) [id number] Essential hypertension Essential hypertension Problem 07/14/2019 12:00:00 AM EDT [facility] ([facility]) M6281 Muscle weakness (generalized) Muscle weakness (general ized) Diagnosis 11/02/2019 10:00:00 AM EDT [facility] [id number] Pain in right hip Pain in right hip Diagnosis 11/02/2019 10:00:00 AM EDT [facility] D90205 Pain in right knee Pain in right knee Diagnosis 06/2019 10:00:00 AM EDT [facility] Z5189 Encounter for other specified aftercare Encounter for other specified aftercare Diagnosis 11/02/2019 10:00:00 AM EDT [facility] S39591 Stiffness of right knee, not elsewhere c lassified Stiffness of right knee, not elsewhere classified Diagnosis 10/13/2019 10:04:00 AM EDT [facility] Z12.31 Encounter for screening mammogram for ma lignant neoplasm of breast ENCNTR SCREEN MAMMOGRAM FOR MALIGNANT NEOPLASM OF BREAST Diagnosis 01:49:00 AM EDT [facility] Z23 Encounter for immunization Encounter for immunization Diagnosis 04/19/2019 10:20:00 AM [facility] Z1389 Encounter for screening for other disord er Encounter for screening for other disorder Diagnosis 04/19/2019 10:20:00 AM [facility] M159 Polyosteoarthritis, unspecified Polyosteoarthritis, un specified Diagnosis 04/19/2019 10:20:00 AM [facility] K219 Gastro-esophageal reflux disease without esophagitis Gastro-esophageal reflux disease without esophagitis Diagnosis 04/19/2019 10:20:00 AM ES [facility] I10 Essential (primary) hypertension Essential (primary) h ypertension Diagnosis 04/19/2019 10:20:00 AM [facility] E669 Obesity, unspecified Obesity, unspecified Diagnosis 04/16/2019 07:54:00 AM [facility] E559 Vitamin D deficiency, unspecified Vitamin D defi ciency, unspecified Diagnosis 04/16/2019 07:54:00 AM [facility] E785 Hyperlipidemia, unspecified Hyperlipidemia, unspecifie d Diagnosis 04/16/2019 07:54:00 AM [facility] H26.492 Other secondary cataract, left eye OTHER SECONDA RY CATARACT, LEFT EYE Diagnosis 04/14/2019 10:28:00 AM [facility] H26.491 Other secondary cataract, right eye OTHER SECOND OLAF CATARACT, RIGHT EYE Diagnosis 04/07/2019 10:22:00 AM [facility] H02.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 DE RMATOCHALASIS OF RIGHT UPPER EYELID Diagnosis 02/24/2019 12:37:00 PM [facility] H02.834 Dermatochalasis of left upper eyelid ARETHA MATOCHALASIS OF LEFT UPPER EYELID Diagnosis 02/24/2019 12:37:00 PM [facility] Surgeries/Procedures Procedure Description Date Indications Data Source(s) RADIOLOGIC EXAMINATION KNEE 3 VIEWS 11/23/2019 12:00:0 0 AM EDT [facility] ([facility]) ARTHRP KNE CONDYLE&PLATU MEDIAL&LAT CMPRTS 10/06/2019 12:00:00 AM EDT [facility] ([facility]) ARTHRP KNE CONDYLE&PLATU MEDIAL&LAT CMPRTS 10/06/2019 12:00:00 AM EDT [facility] ([facility]) 70972 BREAST TOMOSYNTHESIS BI 08/13/2019 12:00:00 AM [facility] 38871 SCR MAMMO BI INCL CAD 08/13/2019 12:00:00 AM [facility] RADIOLOGIC EXAMINATION KNEE 3 VIEWS 07/14/2019 12:00:0 0 AM EDT [facility] ([facility]) RADIOLOGIC EXAMINATION KNEE 3 VIEWS 07/14/2019 12:00:0 0 AM EDT [facility] ([facility]) POST-CATARACT LASER SURGERY AFTER CATARACT LASER SURGERY 10/2019 12:00:00 AM [facility] XTRNL OCULAR PHOTOG W/I&R DOCMT MEDICAL PROGRESS EYE PHOTOGR APHY 02/24/2019 12:00:00 AM [facility] VISUAL FIELD XM UNI/BI W/INTERP INTERMED EXAM VISUAL FIELD E XAMINATION(S) 02/24/2019 12:00:00 AM [facility] Results ID Date Data Source [id number] 04/05/2020 10:00:00 AM EST [facility] Name Value Range Interpretation Code Description Data Nidia rce(s) Supporting Document(s) SARS coronavirus 2 RNA Not Detected [facility] This lab was ordered by [facility] and reported by [facility]. ID Date Data Source [id number] 03/29/2020 09:08:00 AM EST [facility] ([facility]) Name Value Range Interpretation Code Description Data Nidia rce(s) Supporting Document(s) Blood Urea Nitrogen 28 mg/dL 7-18 [facility] ([facility]) Glucose, Fasting 92 mg/dL 70-100 [facility] ([facility]) Creatinine For GFR 0.90 mg/dL 0.55-1.30 [facility] ([facility]) Glomerular Filtration Rate Laboratory test result [facility] ([facility]) <content>Units are mL/min/1.73 m2</content>
<content></content>
<content>Chronic Kidney Disease Staging per NKF:</content>
<content></content>
<content>Stage I & II GFR >=60 Normal to Mildly Decreased</content>
<content>Stage III GFR 30- 59 Moderately Decreased</content>
<content>Stage IV GFR 15-29 Severely Decreased</content>
<content>Stage V GFR <15 Very Little GFR Left</content>
<content>ESRD GFR <15 on PRIMER CHARGING TOOL SETTER</content>
<content></content> Sodium Level 138 meq/L 136-145 [facility] ([facility]) Carbon Dioxide Level 29 meq/L 21-32 [facility] ([facility]) Chloride Level 103 meq/L 98-107 [facility] ([facility]) Potassium Serum 4.2 meq/L 3.5-5.1 [facility] ([facility]) Calcium Level 9.0 mg/dL 8.8-10.2 [facility] ([facility]) Anion Gap 6 meq/L 8-16 [facility] ([facility]) Ast/Sgot 18 U/L 7-37 [facility] ([facility]) Alt/SGPT 23 U/L 12-78 [facility] ([facility]) Alkaline Phosphatase 95 U/L 45-117 [facility] ( [facility]) Bilirubin,Total 0.3 mg/dL 0.2-1.0 [facility] ([facility]) Albumin 3.4 GM/DL 3.2-5.2 [facility] Total Protein 6.6 GM/DL 6.4-8.2 [facility] ([facility]) Albumin/Globulin Ratio 1.1 1.2-2.2 [facility] ([facility]) ID Date Data Source [id number] 03/29/2020 09:08:00 AM EST [facility] ([facility]) Name Value Range Interpretation Code Description Data Nidia rce(s) Supporting Document(s) Erythrocyte sedimentation rate by Westergren method 43 mm/hr 0-30 [facility] ([facility]) ID Date Data Source [id number] 03/29/2020 09:08:00 AM EST [facility] ([facility]) Name Value Range Interpretation Code Description Data Nidia rce(s) Supporting Document(s) White Blood Count 7.4 10 4.0-10.0 [facility] ([facility]) Hematocrit 38.7 % 36.0-47.0 [facility] ([facility]) Hemoglobin 12.1 g/dL 12.0-15.5 [facility] ([facility]) Red Blood Count 4.20 10 4.00-5.40 [facility] ([facility]) Mean Corpuscular Volume 92.1 fl 80.0-96.0 M EDENT ([facility]) Mean Corpuscular Hemoglobin 28.8 pg 27.0-33.0 [facility] ([facility]) Mean Corpuscular HGB Conc 31.3 g/dL 32.0-36.5 [facility] ([facility]) Red Cell Distribution Width 13.9 % 11.5-14.5 [facility] ([facility]) Platelet Count, Automated 247 10 150-450 [facility] ([facility]) Nucleated Red Blood Cell % 0.0 % 0-0 [facility] ([facility]) ID Date Data Source [id number] 03/29/2020 09:08:00 AM EST [facility] ([facility]) Name Value Range Interpretation Code Description Data Nidia rce(s) Supporting Document(s) Prothrombin Time 12.4 s 12.5-14.3 [facility] ([facility]) Inr 0.91 [facility] ([facility]) THERAPUTIC HUMAN INR VALUES INDICATIONS NORMAL RANGES PROPHYLAXIS/TREATMENT OF: VENOUS THROMBOSIS 2.0-3.0 PULMONARY EMBOLISM 2.0-3.0 PREVENTION OF SYSTEMIC EMBOLISM FROM: TISSUE HEART VALVES 2.0-3.0 ACUTE MYOCARDIAL INFARCTION 2.0-3.0 VALVULAR HEART DISEASE 2.0-3.0 ATRIAL FIBRILLATION 2.0-3.0 MECHANICAL VALVES(HIGH RISK) 2.5-3.5 RECURRENT MYOCARDIAL INFARCTION 2.5-3.5 ID Date Data Source [id number] 10/03/2019 12:00:00 AM EDT [facility] Name Value Range Interpretation Code Description Data Nidia rce(s) Supporting Document(s) SARS coronavirus 2 RNA [facility] This lab was ordered by [facility] and reported by [facility]. ID Date Data Source [id number] 09/30/2019 11:13:00 AM EDT [facility] ([facility]) Name Value Range Interpretation Code Description Data Nidia rce(s) Supporting Document(s) Glucose, Fasting 70 mg/dL 70-100 [facility] ([facility]) Blood Urea Nitrogen 23 mg/dL 7-18 [facility] ([facility]) Sodium Level 139 meq/L 136-145 [facility] ([facility]) Creatinine For GFR 0.90 mg/dL 0.55-1.30 [facility] ([facility]) Glomerular Filtration Rate Laboratory test [facility] <content>Units are mL/min/1.73 m2</content>
<content></content>
<content>Chronic Kidney Disease Staging per NKF:</content>
<content></content>
<content>Stage I & II GFR >=60 Normal to Mildly Decreased</content>
<content>Stage III GFR 30- 59 Moderately Decreased</content>
<content>Stage IV GFR 15-29 Severely Decreased</content>
<content>Stage V GFR <15 Very Little GFR Left</content>
<content>ESRD GFR <15 on PRIMER CHARGING TOOL SETTER</content>
<content></content> Chloride Level 103 meq/L 98-107 [facility] ([facility] Carbon Dioxide Level 29 meq/L 21-32 [facility] ([facility] Potassium Serum 4.3 meq/L 3.5-5.1 [facility] ([facility]) Ast/Sgot 14 U/L 7-37 [facility] ([facility]) Calcium Level 9.4 mg/dL 8.8-10.2 [facility] ([facility]) Anion Gap 7 meq/L 8-16 [facility] ([facility] Alt/SGPT 20 U/L 12-78 [facility] ([facility] Alkaline Phosphatase 90 U/L 45-117 [facility] ([facility]) Total Protein 7.1 GM/DL 6.4-8.2 [facility] ([facility]) Bilirubin,Total 0.3 mg/dL 0.2-1.0 [facility] ([facility]) Albumin 3.6 GM/DL 3.2-5.2 [facility] ([facility]) Albumin/Globulin Ratio 1.0 1.2-2.2 [facility] ([facility]) ID Date Data Source [id number] 09/30/2019 11:13:00 AM EDT [facility] ([facility]) Name Value Range Interpretation Code Description Data Nidia rce(s) Supporting Document(s) Erythrocyte sedimentation rate by Westergren method 46 mm/hr 0-30 [facility] ([facility]) ID Date Data Source [id number] 09/30/2019 11:13:00 AM EDT [facility] ([facility]) Name Value Range Interpretation Code Description Data Nidia rce(s) Supporting Document(s) White Blood Count 8.3 10 4.0-10.0 [facility] ([facility]) Red Blood Count 4.30 10 4.00-5.40 [facility] ([facility]) Hemoglobin 12.9 g/dL 12.0-15.5 [facility] ([facility]) Hematocrit 39.3 % 36.0-47.0 [facility] ([facility]) Mean Corpuscular Hemoglobin 30.0 pg 27.0-33.0 [facility] ([facility]) Mean Corpuscular HGB Conc 32.8 g/dL 32.0-36.5 [facility] ([facility]) Mean Corpuscular Volume 91.4 fl 80.0-96.0 M [facility] ([facility]) Platelet Count, Automated 292 10 150-450 [facility] ([facility]) Nucleated Red Blood Cell % 0.0 % 0-0 [facility] ([facility]) Red Cell Distribution Width 13.5 % 11.5-14.5 [facility] ([facility]) ID Date Data Source [id number] 09/30/2019 11:13:00 AM EDT [facility] ([facility]) Name Value Range Interpretation Code Description Data Nidia rce(s) Supporting Document(s) Prothrombin Time 13.5 s 11.8-14.0 [facility] ([facility]) Inr 1.06 [facility] ([facility]) THERAPUTIC HUMAN INR VALUES INDICATIONS NORMAL RANGES PROPHYLAXIS/TREATMENT OF: VENOUS THROMBOSIS 2.0-3.0 PULMONARY EMBOLISM 2.0-3.0 PREVENTION OF SYSTEMIC EMBOLISM FROM: TISSUE HEART VALVES 2.0-3.0 ACUTE MYOCARDIAL INFARCTION 2.0-3.0 VALVULAR HEART DISEASE 2.0-3.0 ATRIAL FIBRILLATION 2.0-3.0 MECHANICAL VALVES(HIGH RISK) 2.5-3.5 RECURRENT MYOCARDIAL INFARCTION 2.5-3.5 ID Date Data Source [id number] 08/13/2019 11:21:00 AM EDT [facility] Name: CHECO JONES : 1940 Age/Sex: 78F Ordering Provider: Noy Ferrell MD Med Rec #: [id number] Date of Service: 08/13/19 Report Number: [id number] cc: Noy Ferrell MD; Kevan Duran MD Send Report To: [id number] MAMMOSCR/Screening Erlin Badillo w Gareth CAD Reason for Exam: SCREENING Patient States Last CBE: 09/2019 Is this a follow up exam: Follow up to: Patient's Jaclyn Model lifetime risk of developing breast cancer: 7.2% Examination is compared to 06/22/18 and 05/20/15. Craniocaudad and oblique views of the breasts were obtained and combined with Tomosynthesis views in the same projections. The breasts are composed of scattered fibroglandular densities. There is no dominant mass, suspicious clustered calcification, nor architectural distortion. IMPRESSION: NO MAMMOGRAPHIC EVIDENCE OF MALIGNANCY. YEARLY SCREENING RECOMMENDED. This mammogram was performed digitally and interpreted with the aid of ICAD, an FDA-approved, computer-aided detection system. OVERALL FINAL ASSESSMENT OF BREAST COMPOSITION: BIRADS CLASSIFICATION: B DESCRIPTION: There are scattered areas of fibroglandular density. OVERALL FINAL ASSESSMENT OF FINDINGS: BIRADS CLASSIFICATION: 2 DESCRIPTION: BENIGN. REPORT SIGNATURE ON FILE 08/13/19 1406 Reported By: Epi Hahn MD <Electronically signed by Jennifer Hahn MD>08/13/19 1406 Dictation Date/Time: 08/13/19 0946 Transcribed Date/Time: 08/13/19 1121 Pamphlet Distributor: [employer] Name Value Range Interpretation Code Description Data Nidia rce(s) Supporting Document(s) ID Date Data Source [id number] 04/16/2019 07:55:00 AM EST [facility] Name Value Range Interpretation Code Description Data Nidia rce(s) Supporting Document(s) 25-OH VITAMIN D 33.9 ng/mL 30.0 - 100 [facility] Deficient < 20 ng/mL Insufficient 20 - < 30 ng/mL Sufficient 30 - 100 ng/mL 25-OH vitamin D reference values based on the Clinical Guidelines Subcommittee of the Endocrine Society Task Force. Biotin can interfere with 25-OH Vitamin D results if taken 48 hours prior to specimen collection. ID Date Data Source [id number] 04/16/2019 07:55:00 AM EST [facility] Name Value Range Interpretation Code Description Data Nidia rce(s) Supporting Document(s) Cholesterol [Mass/volume] in Serum or Plasma 212 mg/dL [facility] Triglyceride [Mass/volume] in Serum or Plasma 131 mg/dL [facility] Cholesterol in HDL [Mass/volume] in Serum or Plasma 54 mg/dL [facility] Cholesterol in LDL [Mass/volume] in Serum or Plasma by calculati on 132 mg/dL [facility] CHOL/HDL 3.93 [facility] l \\BLDo\\INTERPRE TATION\\BLDx\\ REFERENCE RANGES (NATIONAL CHOLESTEROL EDUCATION PROGRAM) CHOLESTEROL < 200 mg/dL DESIREABLE 200 - 239 mg/dL BORDERLINE HIGH > 240 mg/dL HIGH TRIGLYCERIDES < 150 mg/dL DESIREABLE 150 - 199 mg/dL BORDERLINE HIGH 200 - 499 mg/dL HIGH > or = 500 mg/dL VERY HIGH HDL > or = 60 mg/dL HIGH < 40 mg/dL LOW LDL < 100 mg/dL DESIREABLE 100 - 129 mg/dL LOW RISK 130 - 159 mg/dL BORDERLINE HIGH 160 - 189 mg/dL HIGH > or = 190 mg/dL VERY HIGH ID Date Data Source [id number] 04/16/2019 07:55:00 AM EST [facility] Name Value Range Interpretation Code Description Data Nidia rce(s) Supporting Document(s) COMPREHENSIVE CHEM PROFILE [facility] COMPREHENSIVE METABOLIC PANEL Sodium [Moles/volume] in Serum or Plasma 136 mEq/L 136 - 145 [facility] Potassium [Moles/volume] in Serum or Plasma 4.1 mEq/L 3.5 - 5.1 [facility] Chloride [Moles/volume] in Serum or Plasma 98 mEq/L 98 - 107 [facility] Carbon dioxide, total [Moles/volume] in Serum or Plasma 29.1 mEq /L 21.0 - 32.0 [facility] Glucose [Mass/volume] in Serum or Plasma 95 mg/dL 70 - 100 [facility] Urea nitrogen [Mass/volume] in Serum or Plasma 20 mg/dL 7 - 18 Above high normal [facility] CREATININE SERUM 0.97 mg/dL 0.55 - 1.02 [facility] AGE 78 yrs [facility] l HEIGHT na [facility] l eGFR NON-AFR AMR 56 [facility] eGFR AFR AMR >60 [facility] BUN/CREAT 21 6 - 25 [facility] Protein [Mass/volume] in Serum or Plasma 7.5 g/dL 6.0 - 8.3 [facility] Albumin [Mass/volume] in Serum or Plasma 3.6 g/dL 3.8 - 5.4 Below low normal [facility] GLOBULIN 3.9 g/dL 2.0 - 4.0 [facility] A/G RATIO 0.9 0.8 - 2.0 [facility] l Calcium [Mass/volume] in Serum or Plasma 9.7 mg/dL 8.8 - 10.2 [facility] Bilirubin.total [Mass/volume] in Serum or Plasma 0.4 mg/dL 0.2 - 1.0 [facility] Bilirubin.direct [Mass/volume] in Serum or Plasma 0.1 mg/dL 0.0 - 0. 2 [facility] INDIRECT BILI 0.3 mg/dL 0.0 - 1.1 [facility] pital ALK PHOSPHATASE 103 U/L 35 - 104 [facility] ospital Aspartate aminotransferase [Enzymatic ac tivity/volume] in Serum or Plasma by With P-5'-P 12 IU/L 7 - 37 [facility] Alanine aminotransferase [Enzymatic acti vity/volume] in Serum or Plasma by With P-5'-P 20 IU/L 12 - 78 [facility] ANION GAP 13 5 - 15 [facility] l Estimated GFR referenc e range: >60ml/min/1.73m >18 years: Calculated using IDMS traceable Study Equation <18 years: Calculated using IDMS tracable Bedside Schartz Equation ID Date Data Source [id number] 04/16/2019 07:55:00 AM EST [facility] Name Value Range Interpretation Code Description Data Nidia rce(s) Supporting Document(s) CBC [facility] l COMPLETE BLOOD COUNT Leukocytes [#/volume] in Blood by Automated count 9.2 K/uL 4.0 - 10 .0 [facility] Erythrocytes [#/volume] in Blood by Automated count 4.34 M/uL 4.00 - 5.40 [facility] Hemoglobin [Mass/volume] in Blood 12.9 g/dL 12.0 - 15.5 [facility] Hematocrit [Volume Fraction] of Blood by Automated count 39.5 % 3 6.0 - 44.5 [facility] Erythrocyte mean corpuscular volume [Entitic volume] by Auto mated count 91.0 fL 80.0 - 96.0 [facility] Erythrocyte mean corpuscular hemoglobin [Entitic mass] by Automated count 29.7 pg 26.0 - 34.0 [facility] Erythrocyte mean corpuscular hemoglobin concentration [Mass/volume] by Automated count 32.7 g/dL 32.0 - 36.0 [facility] Erythrocyte distribution width [Ratio] by Automated count 12.8 % 11.6 - 14.8 [facility] Platelets [#/volume] in Blood by Automated count 282 K/uL 150 - 450 [facility] Platelet mean volume [Entitic volume] in Blood by Automated count 10.1 fL 7.1 - 10.4 [facility] Neutrophils [#/volume] in Blood by Automated count 5.47 K/uL 1.70 - 7.70 [facility] Lymphocytes [#/volume] in Blood by Automated count 2.74 K/uL 1.50 - 6.00 [facility] Monocytes [#/volume] in Blood by Automated count 0.63 K/uL 0.00 - 1. 00 [facility] Eosinophils [#/volume] in Blood by Automated count 0.26 K/uL 0.00 - 0.30 [facility] Basophils [#/volume] in Blood by Automated count 0.06 K/uL 0.00 - 0. 10 [facility] 0.05 Urinalysis macro (dipstick) panel - Urine 0.000 10^3/uL 0.000 - 0.012 [facility] Neutrophils/100 leukocytes in Blood by Automated count 59.4 % 42. 2 - 75.2 [facility] Lymphocytes/100 leukocytes in Blood by Automated count 29.8 % 15. 0 - 41.0 [facility] Monocytes/100 leukocytes in Blood by Automated count 6.8 % 0.0 - 12.0 [facility] Eosinophils/100 leukocytes in Blood by Automated count 2.8 % 0.0 - 7.0 [facility] 0.70.50 NRBC 0.0 % [facility] MANUAL DIFF NOT INDICATED [facility] RBC MORPH NOT INDICATED [facility] Procedure Social History Code Duration Value Status Description Data Source(s ) Smoking 07/14/2019 12:00:00 AM EDT Patient has never smoked co mpleted Patient has never smoked [facility] ([facility] ) Vital Signs ID Date Data Source UNK Name Value Range Interpretation Code Description Data Source(s) Respiratory rate 16 /min 16 /min [facility] ( [facility]) Body mass index (BMI) [Ratio] 39.1 kg/m2 39.1 k g/m2 [facility] ([facility]) Body weight 210.50 [lb_av] 210.50 [lb_av] [facility] T ([facility]) Body height 61.5 [in_i] 61.5 [in_i] [facility] ([facility]) 5'1.50" Body temperature 96.0 [degF] 96.0 [degF] [facility] ([facility]) Heart rate 74 /min 74 /min [facility] ([facility]) Diastolic blood pressure 82 mm[Hg] 82 mm[Hg] [facility] ([facility]) Systolic blood pressure 128 mm[Hg] 128 mm[Hg] M [facility] ([facility]) Body mass index (BMI) [Ratio] 39.1 kg/m2 39.1 k g/m2 [facility] ([facility]) Body weight 214.00 [lb_av] 214.00 [lb_av] [facility] T ([facility]) Body height 62 [in_i] 62 [in_i] [facility] ([facility]) 5'2" Body temperature 97.1 [degF] 97.1 [degF] [facility] ([facility]) Heart rate 84 /min 84 /min [facility] ([facility]) Diastolic blood pressure 75 mm[Hg] 75 mm[Hg] [facility] ([facility]) Systolic blood pressure 138 mm[Hg] 138 mm[Hg] M [facility] ([facility]) Body mass index (BMI) [Ratio] 38.4 kg/m2 38.4 k g/m2 [facility] ([facility]) Body weight 210.12 [lb_av] 210.12 [lb_av] [facility] T ([facility]) Body height 62 [in_i] 62 [in_i] [facility] ([facility]) 5'2" Body temperature 97.5 [degF] 97.5 [degF] [facility] ([facility]
[2020-04-10 17:30] VITALS: BP 168/91
[2020-04-10 18:30] VITALS: BP 143/67
[2020-04-10] MEDS: ASPIRIN 81 MG ENTERIC TAB PO SCH (21:05)
[2020-04-10] MEDS: PERCOCET 5MG/325MG TAB PO PRN (21:06)
[2020-04-10] MEDS: ceFAZolin SOD 2 GM in IV 1 EA IV SCH (21:06)
[2020-04-10 22:00] VITALS: BP 134/66
[2020-04-11] MEDS: LR 1,000 ML IV SCH (01:15)
[2020-04-11] MEDS: PERCOCET 5MG/325MG TAB PO PRN ×4 (01:23→18:16)
[2020-04-11 01:31] VITALS: BP 139/68
[2020-04-11] MEDS: ceFAZolin SOD 2 GM in IV 1 EA IV SCH ×2 (05:05→12:25)
[2020-04-11 06:00] VITALS: BP 124/65
[2020-04-11] MEDS ORDERED: PERC5TAB12 PO (06:12)
[2020-04-11] MEDS ORDERED: ECOT81TA5 PO (06:12)
[2020-04-11 06:40] LABS: HEMATOCRIT 35.5 % (36.0-47.0); HEMOGLOBIN 11.4 g/dl (12.0-15.5); MEAN CORPUSCULAR HGB CONC 32.1 g/dl (32.0-36.5); MEAN CORPUSCULAR VOLUME 90.3 fl (80.0-96.0); PLATELET COUNT, AUTOMATED 245 10^3/uL (150-450); RED BLOOD COUNT 3.93 10^6/uL (4.00-5.40); WHITE BLOOD COUNT 13.8 10^3/uL (4.0-10.0)
[2020-04-11 07:20] LABS: ALBUMIN 2.9 GM/DL (3.2-5.2); ALT/SGPT 16 U/L (12-78); BILIRUBIN,TOTAL 0.2 MG/DL (0.2-1.0); BLOOD UREA NITROGEN 28 MG/DL (7-18); CALCIUM LEVEL 8.3 MG/DL (8.8-10.2); CARBON DIOXIDE LEVEL 28 MEQ/L (21-32); CHLORIDE LEVEL 103 MEQ/L (98-107); CREATININE FOR GFR 0.91 MG/DL (0.55-1.30); GLOMERULAR FILTRATION RATE > 60.0 (>39); GLUCOSE, FASTING 130 MG/DL (70-100); MAGNESIUM LEVEL 2.1 MG/DL (1.8-2.4); POTASSIUM SERUM 3.7 MEQ/L (3.5-5.1); SODIUM LEVEL 138 MEQ/L (136-145); TOTAL PROTEIN 6.3 GM/DL (6.4-8.2)
[2020-04-11] MEDS: PANTOPRAZOLE 40MG TAB (PROTONIX) PO SCH (07:56)
[2020-04-11] MEDS: ASPIRIN 81 MG ENTERIC TAB PO SCH ×2 (07:56→21:57)
[2020-04-11] MEDS: hydroCHLOROthiazide 12.5 MG CAPSULE PO SCH (07:57)
[2020-04-11] MEDS: ROSUVASTATIN 10 MG TAB (CRESTOR) PO SCH (07:57)
[2020-04-11] MEDS: MOM 30ML SUSPENSION UDC PO SCH (07:58)
[2020-04-11] MEDS: MIRALAX *UNIT DOSE* 17GM PACKET PO SCH (07:58)
[2020-04-11] MEDS: LOSARTAN 25 MG TAB PO SCH (07:58)
[2020-04-11 10:00] VITALS: BP 129/64
[2020-04-11 14:00] VITALS: BP 136/62
[2020-04-11 22:00] VITALS: BP 129/63
[2020-04-12] MEDS: PERCOCET 5MG/325MG TAB PO PRN ×2 (01:15→07:37)
[2020-04-12 04:54] VITALS: BP 149/70
[2020-04-12] MEDS: hydroCHLOROthiazide 12.5 MG CAPSULE PO SCH (07:35)
[2020-04-12] MEDS: ASPIRIN 81 MG ENTERIC TAB PO SCH (07:35)
[2020-04-12 07:36] VITALS: BP 149/70
[2020-04-12] MEDS: LOSARTAN 25 MG TAB PO SCH (07:36)
[2020-04-12] MEDS: ROSUVASTATIN 10 MG TAB (CRESTOR) PO SCH (07:36)
[2020-04-12] MEDS: PANTOPRAZOLE 40MG TAB (PROTONIX) PO SCH (07:36)
[2020-04-12] MEDS: MIRALAX *UNIT DOSE* 17GM PACKET PO SCH (07:37)
[2020-04-12] MEDS: MOM 30ML SUSPENSION UDC PO SCH (07:37)
[2020-04-12 08:58] LABS: HEMATOCRIT 35.5 % (36.0-47.0); HEMOGLOBIN 11.3 g/dl (12.0-15.5); MEAN CORPUSCULAR HEMOGLOBIN 29.4 pg (27.0-33.0); MEAN CORPUSCULAR HGB CONC 31.8 g/dl (32.0-36.5); MEAN CORPUSCULAR VOLUME 92.2 fl (80.0-96.0); PLATELET COUNT, AUTOMATED 225 10^3/uL (150-450); RED BLOOD COUNT 3.85 10^6/uL (4.00-5.40); WHITE BLOOD COUNT 11.1 10^3/uL (4.0-10.0)
[2020-04-12] MEDS ORDERED: FLUBLOK(EGG FREE)(QUAD)INFLUENZA VACC 0.5ML SYRINGE 18YRS & OLDER IM ONE (09:00)
[2020-04-12 09:35] LABS: ALBUMIN 2.9 GM/DL (3.2-5.2); ALT/SGPT 9 U/L (12-78); BILIRUBIN,TOTAL 0.4 MG/DL (0.2-1.0); BLOOD UREA NITROGEN 23 MG/DL (7-18); CALCIUM LEVEL 8.4 MG/DL (8.8-10.2); CARBON DIOXIDE LEVEL 31 MEQ/L (21-32); CHLORIDE LEVEL 99 MEQ/L (98-107); CREATININE FOR GFR 0.76 MG/DL (0.55-1.30); GLOMERULAR FILTRATION RATE > 60.0 (>39); GLUCOSE, FASTING 106 MG/DL (70-100); POTASSIUM SERUM 3.4 MEQ/L (3.5-5.1); SODIUM LEVEL 137 MEQ/L (136-145); TOTAL PROTEIN 5.8 GM/DL (6.4-8.2)
== END 2020-04-12 11:30 | disposition home or self-care (01) | DRG 470 ==
LOC: M SDC 08:53 → M MS5PR 15:50
PROVIDERS: ADMIT Orthopaedic Surgery; ATTEND Orthopaedic Surgery
PROC: 0SRD0J9 Replacement of Left Knee Joint with Synthetic Substitute, Cemented, Open Approach (ICD-10-PCS; principal; 2020-04-10 12:35)
DX: M17.12 Unilateral primary osteoarthritis, left knee (principal); E66.9 Obesity, unspecified; I10 Essential (primary) hypertension; K21.9 Gastro-esophageal reflux disease without esophagitis; E78.5 Hyperlipidemia, unspecified; Z96.651 Presence of right artificial knee joint; Z87.891 Personal history of nicotine dependence; Z79.899 Other long term (current) drug therapy